=== PATIENT | male | born 1935 | race Asian ===

== ENCOUNTER 2019-08-01 15:10 | Inpatient (IN) | payer MEDICARE ==
[~2019-08-01] VITALS: Ht 167.6 cm; Wt 43.5 kg
--- NOTE | 2019-08-01 15:20 | NUR ---
ED Nurse Note: Pt arrived with RA 861 from home due to generalized weakness. pt states that he has all over body pain and feels weak starting last night worsening this morning. pt iv site established patent and intact; blood specimen sent to lab
[2019-08-01 15:22] VITALS: BP 142/30
[2019-08-01] MEDS ORDERED: LOSARTAN POTASS50 MG ORAL (15:35)
[2019-08-01] MEDS ORDERED: METFORMIN HCL500 M1 ORAL (15:36)
[2019-08-01] MEDS ORDERED: ATORVASTATIN CA20 MG ORAL (15:36)
[2019-08-01] MEDS ORDERED: LEVOFLOXACIN500 MG ORAL (15:37)
--- NOTE | 2019-08-01 15:40 | NUR ---
ED Nurse Note: states that has not had bowel movement x 1 week and has had difficulty eating due to shortness of breath. pt does not appear in distress and does not show SOB or cough, flu like symptoms at this moment.
[2019-08-01] MEDS ORDERED: Omnipaque-300 100ml vial INJ ONE (16:00)
[2019-08-01 16:08] LABS: BASOPHILS % (AUTO) 0.7 % (0.0-2.0); EOSINOPHILS % (AUTO) 0.2 % (0.0-3.0); HEMATOCRIT 39.7 % (42.0-52.0); HEMOGLOBIN 12.9 G/DL (14.2-18.0); LYMPHOCYTES % (AUTO) 21.1 % (20.0-45.0); MEAN CORPUSCULAR VOLUME 102 FL (80-99); MONOCYTES % (AUTO) 5.1 % (1.0-10.0); NEUTROPHILS % (AUTO) 72.9 % (45.0-75.0); PLATELET COUNT 365 K/UL (150-450); RED BLOOD COUNT 3.92 M/UL (4.70-6.10); RED CELL DISTRIBUTION WIDTH 12.3 % (11.6-14.8); WHITE BLOOD COUNT 9.2 K/UL (4.8-10.8)
[2019-08-01 16:17] LABS: ANION GAP 12 mmol/L (5-15); BLOOD UREA NITROGEN 26 mg/dL (7-18); CALCIUM 9.1 MG/DL (8.5-10.1); CARBON DIOXIDE 31 MMOL/L (21-32); CHLORIDE 98 MMOL/L (98-107); CREATININE 0.8 MG/DL (0.55-1.30); POTASSIUM 4.1 MMOL/L (3.5-5.1); SODIUM 141 MMOL/L (136-145)
[2019-08-01 16:21] LABS: ALANINE AMINOTRANSFERASE 13 U/L (12-78); ALBUMIN 3.7 G/DL (3.4-5.0); ALBUMIN/GLOBULIN RATIO 1.2 (1.0-2.7); ALKALINE PHOSPHATASE 49 U/L (46-116); ASPARTATE AMINO TRANSFERASE 21 U/L (15-37); BILIRUBIN,TOTAL 0.7 MG/DL (0.2-1.0)
--- NOTE | 2019-08-01 16:23 | NUR ---
ED Nurse Note: Inserted I&O with coude, no urine was able to be obtained informed ermd. ERMD aware.
--- NOTE | 2019-08-01 16:26 | NUR ---
ED Nurse Note: Pt is taken to CT with ASHLEY Wilson aware of BUN/Cr levels
--- NOTE | 2019-08-01 16:44 | NUR ---
ED Nurse Note: Pt returned from CT
--- NOTE | 2019-08-01 16:46 | NUR ---
ED Nurse Note: ERMD allowed pt to go to see him for few minutes.
[2019-08-01] MEDS ORDERED: Zolpidem 5mg tab ORAL PRN (17:00)
[2019-08-01] MEDS ORDERED: Miralax 17gm pkt ORAL PRN (17:00)
[2019-08-01 17:11] VITALS: BP 155/71
--- NOTE | 2019-08-01 17:23 | Emergency Room Report ---
History of Present Illness General Chief Complaint: Generalized Weakness Source: Patient, Significant Other, EMS Present Illness HPI 83-year-old male presents the ED for evaluation. Brought in by EMS from home. States that he has been increasingly weak and fell yesterday. Denies hitting his head or LOC. States that he has been feeling short of breath. Also states he has not had a bowel movement in 1 week. Denies chest pain. Denies fevers or chills. Denies cough. Denies nausea or vomiting. No other aggravating relieving factors. Denies any other associated symptoms Allergies: Coded Allergies: PENICILLINS (Verified Allergy, Unknown, 08/01/19) COVID-19 Screening Contact w/high risk pt: No Recent Travel to affected area: No Experienced COVID-19 symptoms?: No COVID-19 Testing performed WARP CHANGER: No Patient History Past Medical History: DM, HTN, other - neurolgoical disorder Past Surgical History: none Pertinent Family History: none Social History: Denies: smoking, alcohol use, drug use Immunizations: UTD Reviewed Nursing Documentation: PMH: Agreed; PSxH: Agreed Nursing Documentation-PMH Hx Hypertension: Yes Hx Diabetes: Yes Review of Systems All Other Systems: negative except mentioned in HPI Physical Exam Vital Signs Date Time Temp Pulse Resp B/P (MAP) Pulse Ox O2 Delivery O2 Flow Rate FiO2 08/01/19 15:06 97.3 88 18 142/30 (67) 98 Room Air Sp02 EP Interpretation: reviewed, normal General Appearance: no apparent distress, alert, GCS 15, non-toxic Head: normocephalic, atraumatic Eyes: bilateral eye normal inspection, bilateral eye PERRL ENT: hearing grossly normal, normal pharynx, no angioedema, normal voice Neck: full range of motion, supple/symm/no masses Respiratory: chest non-tender, lungs clear, normal breath sounds, speaking full sentences Cardiovascular #1: regular rate, rhythm, no edema Cardiovascular #2: 2+ carotid (R), 2+ carotid (L), 2+ radial (R), 2+ radial (L) , 2+ dorsalis pedis (R), 2+ dorsalis pedis (L) Gastrointestinal: normal bowel sounds, non tender, soft, non-distended, no guarding, no rebound Rectal: deferred Genitourinary: normal inspection, no CVA tenderness Musculoskeletal: back normal, normal range of motion, gait/station normal, non- tender Neurologic: alert, motor strength/tone normal, oriented x3, sensory intact, responsive, speech normal Psychiatric: judgement/insight normal, memory normal, mood/affect normal, no suicidal/homicidal ideation Reflexes: 3+ bicep (R), 3+ bicep (L), 3+ tricep (R), 3+ tricep (L), 3+ knee (R) , 3+ knee (L) Skin: other - see nursking skin notes Lymphatic: no adenopathy Medical Decision Making Diagnostic Impression: Primary Impression: Generalized weakness Additional Impression: Unsteady gait Labs Test 08/01/19 15:20 White Blood Count 9.2 K/UL (4.8-10.8) Red Blood Count 3.92 M/UL (4.70-6.10) Hemoglobin 12.9 G/DL (14.2-18.0) Hematocrit 39.7 % (42.0-52.0) Mean Corpuscular Volume 102 FL (80-99) Mean Corpuscular Hemoglobin 32.9 PG (27.0-31.0) Mean Corpuscular Hemoglobin Concent 32.4 G/DL (32.0-36.0) Red Cell Distribution Width 12.3 % (11.6-14.8) Platelet Count 365 K/UL (150-450) Mean Platelet Volume 5.1 FL (6.5-10.1) Neutrophils (%) (Auto) 72.9 % (45.0-75.0) Lymphocytes (%) (Auto) 21.1 % (20.0-45.0) Monocytes (%) (Auto) 5.1 % (1.0-10.0) Eosinophils (%) (Auto) 0.2 % (0.0-3.0) Basophils (%) (Auto) 0.7 % (0.0-2.0) Sodium Level 141 MMOL/L (136-145) Potassium Level 4.1 MMOL/L (3.5-5.1) Chloride Level 98 MMOL/L (98-107) Carbon Dioxide Level 31 MMOL/L (21-32) Anion Gap 12 mmol/L (5-15) Blood Urea Nitrogen 26 mg/dL (7-18) Creatinine 0.8 MG/DL (0.55-1.30) Estimat Glomerular Filtration Rate > 60 mL/min (>60) Glucose Level 110 MG/DL (74-106) Calcium Level 9.1 MG/DL (8.5-10.1) Total Bilirubin 0.7 MG/DL (0.2-1.0) Aspartate Amino Transf (AST/SGOT) 21 U/L (15-37) Alanine Aminotransferase (ALT/SGPT) 13 U/L (12-78) Alkaline Phosphatase 49 U/L (46-116) Troponin I 0.022 ng/mL (0.000-0.056) Total Protein 6.7 G/DL (6.4-8.2) Albumin 3.7 G/DL (3.4-5.0) Globulin 3.0 g/dL Albumin/Globulin Ratio 1.2 (1.0-2.7) Lipase 154 U/L (73-393) EKG Diagnostic Results Rate: normal Rhythm: NSR ST Segments: no acute changes ASA given to the pt in ED: No Rhythm Strip Diag. Results EP Interpretation: yes Rhythm: NSR, no PVC's, no ectopy Last Vital Signs Date Time Temp Pulse Resp B/P (MAP) Pulse Ox O2 Delivery O2 Flow Rate FiO2 08/01/19 17:11 97.3 81 16 155/71 100 Room Air Referrals: NON PHYSICIAN (PCP) Papa Porras MD Aug 01, 2019 17:23
--- NOTE | 2019-08-01 18:26 | Diagnostic Imaging Report ---
CLINICAL INDICATION:Chest pain and abdominal pain TECHNIQUE: No oral contrast, per emergency room physician request. IV administration nonionic contrast. Multiphasic spiral acquisitions obtained through the chest, abdomen, and pelvis. Multiplanar reconstructions were generated. Total dose length product 291 mGycm. CTDIvol(s) 2, 53, 2, 2 mGy. Radiation dose was minimized using automated exposure control COMPARISON: none FINDINGS Chest: The lungs are diffusely hyperinflated, demonstrating panlobular emphysema bilaterally, particularly in the upper lobes. Some scarring is seen in the medial right upper lobe. Minimal scarring is seen in the inferior left upper lobe and anterior superior left upper lobe. A small bulla is seen in the left lower lobe. Linear scarring is seen at the left lung base. 3 mm nodule is seen in the anterior inferior right upper lobe (32/7), 2 mm nodule in the inferior lateral right upper lobe (33/7). Calcified nodule is seen in the right lower lobe. No infiltrates, effusions, or masses. No congestion. The heart size is normal. No pericardial effusion. No mediastinal or hilar mass or adenopathy. Unremarkable esophagus. The thyroid is unremarkable. The bones are unremarkable except for proliferative changes of the thoracic spine. Abdomen pelvis: Lack of enteric contrast limits assessment of the GI tract. What may be a normal appendix is demonstrated on the axial images. In any case, no findings to suggest acute appendicitis are evident. No evidence of colonic diverticulosis or diverticulitis. Borderline dilated distal small bowel loops containing fluid and small bowel feces are demonstrated. No more generalized small bowel distention demonstrated.. No free or loculated intraperitoneal gas or fluid. The stomach and duodenum are unremarkable. The liver, gallbladder, bile ducts are unremarkable. There is a 14 mm cyst in the pancreatic body tail junction. The spleen and adrenals are unremarkable. The left kidney is unremarkable. The right kidney demonstrates 2 interpolar region cysts. The bladder is distended despite apparent adequate position of a Nagel catheter. There is a very large diverticulum coming off of the right side of the bladder, which is larger than the main bladder lumen itself, measuring 11 x 8.4 x 11.8 cm. A cluster of calculi is seen dependently within the posterior lumen of the bladder diverticulum. In aggregate, these measure approximately 13 mm in diameter. The prostate is mildly prominent. The bones are unremarkable. There is generalized mild edema of the subcutaneous fat. IMPRESSION: Diffuse pulmonary hyperinflation consistent with COPD. No definite acute pulmonary process Right lung nodules, as described. If there is significant smoking history or risk factors for lung carcinoma, consider 6-[address] follow-up. Of slight granuloma in the right lower lobe Limited assessment of the GI tract, due to lack of enteric contrast administration Mildly dilated distal ileum, with fluid and feces. Nonspecific, could indicate mild enteritis changes Very large bladder diverticulum, as described. Bladder calculi are seen within this. Note that the bladder is distended despite apparent adequate position of a Nagel catheter 14 elevator cystic lesion within the body tail junction of the pancreas. 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 Consider follow-up CT as indicated Generalized mild edema of the subcutaneous fat Prominent prostate Mild edema of the subcutaneous fat Degenerative spondylosis, right renal cysts incidentally noted The CT scanner at [facility] is accredited by the [employer] and the scans are performed using protocols designed to limit radiation exposure to as low as reasonably achievable to attain images of sufficient resolution adequate for diagnostic evaluation.
--- NOTE | 2019-08-01 19:25 | NUR ---
Nurse Note: Endorsed care; pt calm and relaxed, no signs of distress. VSS. SLIV LT hand. Awaiting further orders.
[2019-08-01 19:26] VITALS: BP 146/74
[2019-08-01 21:06] LABS: APPEARANCE,URINE SLIGHTLY CLOUDY; BILIRUBIN, URINE NEGATIVE (NEGATIVE); COLOR,URINE AMBER; GLUCOSE, URINE (UA) NEGATIVE (NEGATIVE); KETONES,URINE 3+ (NEGATIVE); LEUKOCYTE ESTERASE ,URINE 2+ (NEGATIVE); NITRITE,URINE NEGATIVE (NEGATIVE); PH,URINE 5 (4.5-8.0); PROTEIN,URINE 2+ (NEGATIVE); UROBILINOGEN,URINE NORMAL MG/DL (0.0-1.0)
[2019-08-01 21:09] VITALS: BP 122/77
--- NOTE | 2019-08-01 21:10 | NUR ---
Nurse Note: Pt remains calm, a&ox3, VSS, afebrile. SLIV LT hand; patent. Denies pain. No skin breakdown. All safety measures met; will continue to monitor.
[2019-08-01 21:15] VITALS: BP 122/77
--- NOTE | 2019-08-01 21:24 | NUR ---
NURSE NOTES: Patient came from ER via gurney. A&OX4. IV site patent and intact. Skin intact. Belongings were checked. Bed in lowest position. Call light within reach. Will continue to monitor.
[2019-08-01 21:30] VITALS: BP 140/72
[2019-08-01] MEDS: Heparin 5000 units/ml inj SUBQ SCH (22:30)
[2019-08-02] VITALS: BP 125/69
[2019-08-02 04:00] VITALS: BP 122/66
[2019-08-02] MEDS: NovoLOG Insulin Flexpen SUBQ SCH ×3 (06:30→16:30)
[2019-08-02 06:36] LABS: BASOPHILS % (AUTO) 0.7 % (0.0-2.0); EOSINOPHILS % (AUTO) 0.2 % (0.0-3.0); HEMATOCRIT 33.4 % (42.0-52.0); HEMOGLOBIN 12.1 G/DL (14.2-18.0); LYMPHOCYTES % (AUTO) 14.1 % (20.0-45.0); MEAN CORPUSCULAR VOLUME 93 FL (80-99); MONOCYTES % (AUTO) 5.1 % (1.0-10.0); NEUTROPHILS % (AUTO) 79.9 % (45.0-75.0); PLATELET COUNT 317 K/UL (150-450); RED BLOOD COUNT 3.58 M/UL (4.70-6.10); RED CELL DISTRIBUTION WIDTH 11.1 % (11.6-14.8); WHITE BLOOD COUNT 7.9 K/UL (4.8-10.8)
--- NOTE | 2019-08-02 07:11 | NUR ---
NURSE NOTES: Patient c/o constipation and asking enema. Obtained Fleet enema once order from Dr. Raymundo.
--- NOTE | 2019-08-02 07:12 | NUR ---
HAND-OFF: Report given to Kennedy WHALEY.
[2019-08-02 07:29] LABS: ALANINE AMINOTRANSFERASE 16 U/L (12-78); ALBUMIN 3.3 G/DL (3.4-5.0); ALBUMIN/GLOBULIN RATIO 1.2 (1.0-2.7); ALKALINE PHOSPHATASE 44 U/L (46-116); ANION GAP 10 mmol/L (5-15); ASPARTATE AMINO TRANSFERASE 17 U/L (15-37); BILIRUBIN,TOTAL 0.6 MG/DL (0.2-1.0); BLOOD UREA NITROGEN 18 mg/dL (7-18); CALCIUM 8.9 MG/DL (8.5-10.1); CARBON DIOXIDE 30 MMOL/L (21-32); CHLORIDE 101 MMOL/L (98-107); CHOLESTEROL 143 MG/DL (< 200); CREATININE 0.8 MG/DL (0.55-1.30); HDL CHOLESTEROL 58 MG/DL (40-60); POTASSIUM 3.4 MMOL/L (3.5-5.1); SODIUM 141 MMOL/L (136-145); TRIGLYCERIDES 55 MG/DL (30-150)
[2019-08-02] MEDS ORDERED: Fleet's Enema 133ml RECTAL SCH (07:30)
[2019-08-02 08:00] VITALS: BP 128/71
--- NOTE | 2019-08-02 08:10 | NUR ---
NURSE NOTES: received report from JUDD Szymanski. patient in bed. a&ox4, verbally responsive. no respiratory distress noted. pain on general body. IV on LH20g. saline lock. intact. no BM since 07/26/19. impacted. received order of enema. weak. bed bound. bed in the lowest position and locked. call light within reach. will continue to provide plan of care.
[2019-08-02] MEDS: Heparin 5000 units/ml inj SUBQ SCH (08:15)
--- NOTE | 2019-08-02 11:22 | NUR ---
NURSE NOTES: patient was transferred to room 301-1 with stable condition. given report to JUDD Callejas.
--- NOTE | 2019-08-02 11:25 | NUR ---
NURSE NOTES: Report received from JUDD Nagy. Patient transferred safely from 4E to 3E via patient bed. Patient belongings verified with second RN. Patient is in stable condition, vital signs are stable, no signs of distress noted. Left hand IV is patent and asymptomatic, saline locked. Patient's skin is intact. Bed is low and locked, side rails up x2, call light within reach.
[2019-08-02 12:00] VITALS: BP 127/75
--- NOTE | 2019-08-02 12:41 | History and Physical ---
History of Present Illness General Date patient seen: Aug 02, 2019 Reason for Hospitalization: Generalized Weakness Present Illness HPI 83 year old male with hx of DM, HTN, Parkinson disease brought in by paramedics with CC of weakness for the last two days. Pt states that he has Parkinson but Dopamin is not helping him. He has been constipated for over a week. He looks his age but is very cachectic. Looks comfortable and in no acute distress. Allergies: Coded Allergies: PENICILLINS (Verified Allergy, Unknown, 08/01/19) COVID-19 Screening Contact w/high risk pt: No Recent Travel to affected area: No Experienced COVID-19 symptoms?: No Medication History Scheduled Atorvastatin Calcium* (Atorvastatin Calcium*), 10 MG ORAL BEDTIME, (Reported) Levofloxacin (Levofloxacin*), 500 MG ORAL DAILY, (Reported) Losartan Potassium* (Losartan Potassium*), 100 MG ORAL DAILY, (Reported) Metformin Hcl* (Metformin Hcl*), 500 MG ORAL TWICE A DAY, (Reported) Patient History Healthcare decision maker Resuscitation status Advanced Directive on File Past Medical/Surgical History Past Medical/Surgical History: (1) Parkinson disease (2) Generalized weakness (3) History of diabetes mellitus (4) History of hypertension Review of Systems All Other Systems: negative except mentioned in HPI Physical Exam General Appearance: cachetic, thin Lines, tubes and drains: peripheral HEENT: normocephalic, atraumatic Neck: non-tender, normal alignment Respiratory/Chest: chest wall non-tender, lungs clear Breasts: no masses Cardiovascular/Chest: normal peripheral pulses, normal rate Abdomen: normal bowel sounds, non tender Genitourinary/Rectal: normal genital exam, normal rectal exam Extremities: normal range of motion Neurologic: telephone quotation clerk II-XII grossly normal Last 24 Hour Vital Signs Date Time Temp Pulse Resp B/P (MAP) Pulse Ox O2 Delivery O2 Flow Rate FiO2 08/02/19 09:00 Room Air 08/02/19 08:00 98.1 97 21 128/71 (90) 93 08/02/19 04:00 97.7 81 22 122/66 (84) 93 08/02/19 00:00 98.4 94 20 125/69 (87) 94 08/01/19 23:45 Room Air 08/01/19 22:00 Room Air 08/01/19 21:30 98.1 89 17 140/72 (94) 92 08/01/19 21:15 97.7 90 16 122/77 99 Room Air 08/01/19 21:15 97.7 90 16 122/77 99 Room Air 08/01/19 21:09 97.7 90 16 122/77 99 Room Air 08/01/19 19:26 97.7 78 16 146/74 100 Room Air 08/01/19 17:11 97.3 81 16 155/71 100 Room Air 08/01/19 15:22 97.3 88 18 142/30 98 Room Air 08/01/19 15:22 88 18 Room Air 08/01/19 15:06 97.3 88 18 142/30 (67) 98 Room Air Intake and Output 08/01/19 08/02/19 18:59 06:59 Intake Total 500 ml 420 ml Output Total 0 ml 500 ml Balance 500 ml -80 ml Intake Oral 420 ml IV Total 500 ml Output Urine Total 0 ml 500 ml Laboratory Tests Test 08/01/19 15:20 08/01/19 20:40 08/02/19 04:59 White Blood Count 9.2 K/UL (4.8-10.8) 7.9 K/UL (4.8-10.8) Red Blood Count 3.92 M/UL (4.70-6.10) L 3.58 M/UL (4.70-6.10) L Hemoglobin 12.9 G/DL (14.2-18.0) L 12.1 G/DL (14.2-18.0) L Hematocrit 39.7 % (42.0-52.0) L 33.4 % (42.0-52.0) L Mean Corpuscular Volume 102 FL (80-99) H 93 FL (80-99) # Mean Corpuscular Hemoglobin 32.9 PG (27.0-31.0) H 33.7 PG (27.0-31.0) H Mean Corpuscular Hemoglobin Concent 32.4 G/DL (32.0-36.0) 36.1 G/DL (32.0-36.0) H Red Cell Distribution Width 12.3 % (11.6-14.8) 11.1 % (11.6-14.8) L Platelet Count 365 K/UL (150-450) 317 K/UL (150-450) Mean Platelet Volume 5.1 FL (6.5-10.1) L 4.1 FL (6.5-10.1) L Neutrophils (%) (Auto) 72.9 % (45.0-75.0) 79.9 % (45.0-75.0) H Lymphocytes (%) (Auto) 21.1 % (20.0-45.0) 14.1 % (20.0-45.0) L Monocytes (%) (Auto) 5.1 % (1.0-10.0) 5.1 % (1.0-10.0) Eosinophils (%) (Auto) 0.2 % (0.0-3.0) 0.2 % (0.0-3.0) Basophils (%) (Auto) 0.7 % (0.0-2.0) 0.7 % (0.0-2.0) Sodium Level 141 MMOL/L (136-145) 141 MMOL/L (136-145) Potassium Level 4.1 MMOL/L (3.5-5.1) 3.4 MMOL/L (3.5-5.1) L Chloride Level 98 MMOL/L (98-107) 101 MMOL/L (98-107) Carbon Dioxide Level 31 MMOL/L (21-32) 30 MMOL/L (21-32) Anion Gap 12 mmol/L (5-15) 10 mmol/L (5-15) Blood Urea Nitrogen 26 mg/dL (7-18) H 18 mg/dL (7-18) Creatinine 0.8 MG/DL (0.55-1.30) 0.8 MG/DL (0.55-1.30) Estimat Glomerular Filtration Rate > 60 mL/min (>60) > 60 mL/min (>60) Glucose Level 110 MG/DL (74-106) H 101 MG/DL (74-106) Calcium Level 9.1 MG/DL (8.5-10.1) 8.9 MG/DL (8.5-10.1) Total Bilirubin 0.7 MG/DL (0.2-1.0) 0.6 MG/DL (0.2-1.0) Aspartate Amino Transf (AST/SGOT) 21 U/L (15-37) 17 U/L (15-37) Alanine Aminotransferase (ALT/SGPT) 13 U/L (12-78) 16 U/L (12-78) Alkaline Phosphatase 49 U/L (46-116) 44 U/L (46-116) L Troponin I 0.022 ng/mL (0.000-0.056) Total Protein 6.7 G/DL (6.4-8.2) 6.0 G/DL (6.4-8.2) L Albumin 3.7 G/DL (3.4-5.0) 3.3 G/DL (3.4-5.0) L Globulin 3.0 g/dL 2.7 g/dL Albumin/Globulin Ratio 1.2 (1.0-2.7) 1.2 (1.0-2.7) Lipase 154 U/L (73-393) Urine Color Evie Urine Appearance Slightly cloudy Urine pH 5 (4.5-8.0) Urine Specific [place] 1.020 (1.005-1.035) Urine Protein 2+ (NEGATIVE) H Urine Glucose (UA) Negative (NEGATIVE) Urine Ketones 3+ (NEGATIVE) H Urine Blood Negative (NEGATIVE) Urine Nitrite Negative (NEGATIVE) Urine Bilirubin Negative (NEGATIVE) Urine Ictotest Negative (NEGATIVE) Urine Urobilinogen Normal MG/DL (0.0-1.0) Urine Leukocyte Esterase 2+ (NEGATIVE) H Urine RBC 0 /HPF (0 - 0) Urine WBC 15-20 /HPF (0 - 0) H Urine Squamous Epithelial Cells Occasional /LPF Urine Bacteria Moderate /HPF (NONE) H Urine Yeast Many /HPF (NONE) H Triglycerides Level 55 MG/DL (30-150) Cholesterol Level 143 MG/DL (< 200) LDL Cholesterol 75 mg/dL (<100) HDL Cholesterol 58 MG/DL (40-60) Cholesterol/HDL Ratio 2.5 (3.3-4.4) L Microbiology Date/Time Source Procedure Growth Status 08/01/19 20:40 Urine,Clean Catch Urine Culture - Preliminary NO GROWTH Resulted Height (Feet): 5 Height (Inches): 6.00 Weight (Pounds): 96 Medications Current Medications Medications (Trade) Dose Ordered Sig/Keisha Route PRN Reason Start Time Stop Time Status Last Admin Dose Admin Acetaminophen (Tylenol) 650 mg Q4H PRN ORAL fever 08/01/19 17:00 08/31/19 16:59 Cyproheptadine HCl (Periactin) 4 mg DAILY ORAL 08/02/19 12:30 10/31/19 12:29 UNV Dextrose (Dextrose 50%) 25 ml Q30M PRN IV Hypoglycemia 08/01/19 17:00 10/30/19 16:59 Dextrose (Dextrose 50%) 50 ml Q30M PRN IV Hypoglycemia 08/01/19 17:00 10/30/19 16:59 Docusate Sodium (Colace) 100 mg THREE TIMES A DAY ORAL 08/02/19 13:00 09/01/19 12:59 UNV Heparin Sodium (Porcine) (Heparin 5000 units/ml) 5,000 units EVERY 12 HOURS SUBQ 08/01/19 21:00 09/15/19 20:59 08/02/19 08:15 Insulin Aspart (NovoLOG) BEFORE MEALS AND HS SUBQ 08/02/19 06:30 10/31/19 06:29 Lactulose (Cephulac) 30 gm THREE TIMES A DAY ORAL 08/02/19 13:00 09/01/19 12:59 UNV Mineral Oil (Fleet's Mineral Oil Enema) 133 ml EVERY OTHER DAY RECTAL 08/04/19 09:00 09/03/19 08:59 UNV Ondansetron HCl (Zofran) 4 mg Q6H PRN IVP Nausea & Vomiting 08/01/19 17:00 08/31/19 16:59 Polyethylene Glycol (Miralax) 17 gm BEDTIME ORAL 08/02/19 21:00 09/01/19 20:59 UNV Polyethylene Glycol (Miralax) 17 gm HSPRN PRN ORAL Constipation 08/01/19 17:00 08/31/19 16:59 08/01/19 22:58 Sennosides (Senokot) 8.6 mg DAILY ORAL 08/03/19 09:00 09/02/19 08:59 UNV Zolpidem Tartrate (Ambien) 5 mg HSPRN PRN ORAL Insomnia 08/01/19 17:00 08/08/19 16:59 Assessment/Plan Problem List: (1) Generalized weakness ICD Codes: R53.1 - Weakness SNOMED: 52995258 (2) Intractable constipation ICD Codes: K59.00 - Constipation, unspecified SNOMED: 147956347 (3) Severe protein-calorie malnutrition ICD Codes: E43 - Unspecified severe protein-calorie malnutrition SNOMED: 868481165, 965640934, 661211045 (4) History of diabetes mellitus ICD Codes: Z86.39 - Personal history of other endocrine, nutritional and metabolic disease SNOMED: 995807566 (5) Parkinson disease ICD Codes: G20 - Parkinson's disease SNOMED: 63555602 (6) History of hypertension ICD Codes: Z86.79 - Personal history of other diseases of the circulatory system SNOMED: 400397626 Assessment/Plan: calorie count sliding scale neuro evaluation swallow evaluation trial of Periactin symptomatic treatment for constipation Price Raymundo MD Aug 02, 2019 12:41
[2019-08-02] MEDS ORDERED: Lactulose 20gm/30ml UDC ORAL SCH (13:00)
[2019-08-02] MEDS ORDERED: Cyproheptadine HCl 4mg tab ORAL SCH (13:00)
[2019-08-02] MEDS ORDERED: Docusate 100mg cap ORAL SCH (13:00)
[2019-08-02 13:56] LABS: LACTATE DEHYDROGENASE 159 U/L (81-234)
--- NOTE | 2019-08-02 14:00 | NUR ---
NURSE NOTES: Patient is expressing strong desire to go home, RN explained the risks of going home and informed charge nurse. Dr. Raymundo was contacted, currently waiting for call back.
--- NOTE | 2019-08-02 14:09 | NUR ---
*-* INSURANCE *-* ALL CLINICALS HAVE BEEN FAXED TO: SINHALA LUXEMBOURGER P:[phone] F: [phone] (FAX ALL CLINICALS) Addendum: 08/03/19 at 1146 by MICKEY DELGADO Auth/tracking # [id number] [facility] Fax Clinicals: [phone]
--- NOTE | 2019-08-02 14:30 | NUR ---
PRODUCTION CELL LEADER NOTES PLACED A CALL TO [facility]U FROM PT'S INSURANCE. CLINICALS REVIEWED. PER THU AUTHORIZATION FOR OBS WAS GIVEN. INFORMED THU PT IS A FULL ADMISSION. [facility]U WILL NOT TRANSFER THE PT AT THIS TIME. THU [phone](P)
[2019-08-02 14:36] LABS: % IRON SATURATION 30 % (15-50); IRON 53 ug/dL (50-175); TOTAL IRON BINDING CAPACITY 175 ug/dL (250-450)
--- NOTE | 2019-08-02 14:43 | NUR ---
LEGAL ASSISTANT NOTE CALL MADE TO JOSE CLEMENTS @ [phone]. S/W BRISEYDA IN RE TO [facility]. PER BRISEYDA, PATIENT WILL NOT BE TRANSFERRED TO [facility] AT THIS TIME. PATIENT TO CONTINUE INPATIENT AT [facility] UNTIL DC.
[2019-08-02 16:00] VITALS: BP 127/71
--- NOTE | 2019-08-02 16:00 | NUR ---
NURSE NOTES: Dr. Raymundo cleared patient for discharge home and to continue home medications.
[2019-08-02] MEDS ORDERED: Varibar Honey 250ml MC PRN (16:15)
[2019-08-02] MEDS ORDERED: Varibar Nectar 240ml MC PRN (16:15)
[2019-08-02] MEDS ORDERED: Varibar Pudding 230ml MC PRN (16:15)
[2019-08-02] MEDS ORDERED: Varibar Thin Liquid powder 148gm MC PRN (16:15)
--- NOTE | 2019-08-02 16:44 | NUR ---
CASE MANAGEMENT:INITIAL REVIEW 83 YR OLD MALE BIBA FROM HOME CC;GENERALIZED WEAKNESS SI;WEAKNESS. FALLS. 97.3 88 18 142/30 98% ON RA K+ 3.4 BUN 26 ALK PHOS 44 ALB 3.3 UA+ PROTEIN, KETONES, UROBILI, WBC, BACTERIA, YEAST IS;IVF NS BOLUS ADMITTED TO MED SURG MED SURG STATUS DCP;PATIENT IS FROM HOME
--- NOTE | 2019-08-02 17:00 | NUR ---
ASSOCIATE GENETICS PROFESSOR BEDSIDE SWALLOW EVALUATION (Please see complete report in care activity section) PATIENT REFERRED FOR BEDSIDE SWALLOW EVALUATION BY DR. MARROQUIN: DYSPHAGIA RISK FACTORS FOR THIS 83 Y.O. MALE: ACUTE ISSUES: SOB, constipation, Generalized Weakness, sever protein-calorie malnutrition. H/O: DM, HTN, High Cholesterol, Parkinson disease, PER CXR on 08/01/19 Right lung nodules and suspect h/o COPD. RELEVANT MEDS: Zofran (Nausea); Ambien (insomnia). VITALS ON ROOM AIR: HR: 97; RR: 21; SP02 93% PER ED RN Note: states that has not had bowel movements x1 week and has had difficulty eating due to shortness of breath. Pt does not appear in distress and does not show SOB or cough, flu like symptoms at this moment. POLST: Patient is a full code. PER RN: Patient completed lunch and breakfast without difficulties, completed medication management without difficulties. Current diet is CCHO Medium, Regular texture with thin liquids. Patient seen at bedside, alert and VSS for the duration of the session. Patient is able to verbally make wants and needs known in [place]. Vocal volume/intensity appears reduced; Oral motor ROM and coordination mildly reduced, Patient is able to self-feed, natural dentition intact, oral hygiene is WNL. Patient noted to have a baseline wet, weak, and productive cough resulting in mild amt of secretions Patient was able to spit into a napkin. Patient endorses mild difficulty masticating regular solids diet texture, states no difficulty with thin liquids. ASSOCIATE GENETICS PROFESSOR attempted to give Patient PO trials, however, Patient states 'it doesn't matter because Im leaving tonight, the temperature here is too low," ASSOCIATE GENETICS PROFESSOR offered Patient a blanket and Patient refused. Despite ASSOCIATE GENETICS PROFESSOR max encouragement, Patient continued to refuse PO trials with ASSOCIATE GENETICS PROFESSOR. INITIAL IMPRESSIONS: Suspect s/s of at least Mild Oral phase dysphagia and probable mild pharyngeal phase dysphagia compounded by SOB, generalized weakness, and reduced oral motor coordination and strength, probable prolonged and reduced rotary mastication given Patients reports of difficulty masticating and spouse reports of Patient's difficulty masticating 2/2 SOB prior to admission. Additional aspiration risk given reduced Patients breathing-swallowing coordination. Laryngeal elevation with dry swallow is fair. Despite ASSOCIATE GENETICS PROFESSOR max encouragement, Patient continued to refuse PO trials with ASSOCIATE GENETICS PROFESSOR. PATIENT IS A HIGH RISK FOR ASPIRATION AND POOR PO GIVEN H/O PARKINSON, WEAKNESS, SUSPECT COPD AND SOB RECOMMENDATIONS: 1. Downgrade diet texture to Mechanical Soft-Chopped with Thin Liquids (CCHO Medium carried over from previous order.) 2. RD consult for diet type/supplements. 3. ASSOCIATE GENETICS PROFESSOR plans to f/u for PO trials to assure safety with current diet texture, for dysphagia tx and management, and Patient and caregiver education and training. ASSOCIATE GENETICS PROFESSOR made RN aware of results, recommendations, and ASSOCIATE GENETICS PROFESSOR POC. ASSOCIATE GENETICS PROFESSOR will f/u tomorrow. Thank you for this referral! ASSOCIATE GENETICS PROFESSOR [phone]
--- NOTE | 2019-08-02 17:30 | NUR ---
NURSE NOTES: Patient safely discharged from to home via taxi. Patient was accompanied by his and understood and verbally agreed with fall safety precautions. Belongings were verified and confirmed with patient, patient information packet was provided, IV was removed, and ID wristband removed.
[2019-08-02] MEDS ORDERED: Tamsulosin 0.4mg cap ORAL SCH (21:00)
[2019-08-02] MEDS ORDERED: Miralax 17gm pkt ORAL SCH (21:00)
[2019-08-03] MEDS ORDERED: Sennosides 8.6mg tab ORAL SCH (09:00)
--- NOTE | 2019-08-03 15:58 | NUR ---
*-* NO DISCHARGE SUMMARY IN THE SYSTEM UNABLE TO SEND TO [facility] *-*
[2019-08-04] MEDS ORDERED: Fleet's Mineral Oil Enema RECTAL SCH (09:00)
--- NOTE | 2019-08-06 12:56 | Discharge Summary ---
Discharge Summary Discharge Summary _ DATE OF ADMISSION: 08/01/2019 DATE OF DISCHARGE: 08/02/2019 DISCHARGED BY: Dr. Raymundo REASON FOR ADMISSION: 83 years old male with past medical history diabetes mellitus, hypertension, Parkinson disease, was brought by paramedics with chief complaint of weakness for the last 2 days. Patient was constipated for over a week. Patient was on levodopa without significant help. Patient appeared to be very cachectic. It was reported a fall prior to presentation to ED. Patient denied hitting his head or loss of consciousness. No chest pain. No fever or chills. No cough. Upon evaluation vital signs were stable. Laboratory work-up revealed no leukocytosis ,hemoglobin 12.9, hematocrit 39.7, platelet count 365. Stable electrolytes. BUN 26, creatinine 0.8. Stable LFT. Troponin 0.022. EKG revealed sinus rhythm, no acute ischemic changes . Urinalysis revealed pyuria, moderate bacteria and many yeast. CT scan of the chest ,abdomen,and pelvis revealed diffuse pulmonary hyperinflation consistent with COPD. No definite acute pulmonary process. Right lung nodules. No evidence of colonic diverticulosis or diverticulitis. Borderline dilated distal small bowel loops containing fluid and small bowel feces. No free or loculated intraperitoneal gas or fluid. Liver, gallbladder ,bile ducts were unremarkable. Spleen and adrenals unremarkable as well. Prominent prostate. Very large diverticulum coming off the right side of the bladder. Patient subsequently admitted for further management. HOSPITAL COURSE: Patient admitted to medical surgical floor. Patient started on the IV fluids. Calorie count was implemented. Trial of Periactin started. Blood sugar was managed with a sliding scale of insulin. Home medication continued. DVT prophylaxis provided. Bedside swallow evaluation was done. Diet texture provided as per speech therapist recommendation with strict aspiration precaution. Protein supplements implemented in plan of care. Fall precautions maintained. Patient and his were educated on fall and safety precaution. Potassium was replaced. CEA within normal limits. Anemia work-up consistent with anemia of chronic disease. Stable B12 and folate level. Lipid panel stable. BUN from 26 down to 18 . Blood pressure closely monitored and remained stable without antihypertensive medications. Urine culture revealed Nasrin , patient received a dose of Diflucan. Bowel regimen instituted. Patient had a good bowel movement. Patient clinically stabilized and was ready for discharge home. Due to rapid and unexpected improvement in patient condition , patient was discharged in one day. FINAL DIAGNOSES: Severe protein calorie malnutrition Generalized weakness Intractable constipation-resolved Diabetes mellitus Parkinson disease History of hypertension DISCHARGE MEDICATIONS: See Medication Reconciliation list. DISCHARGE INSTRUCTIONS: Patient was discharged home. Follow-up with a primary care provider in 1 week. I have been assigned to dictate discharge summary for this account. I was not involved in the patient's management. Arianna Tejeda NP Aug 06, 2019 12:55
--- NOTE | 2019-08-06 13:49 | NUR ---
*-* INSURANCE *-* ALL CLINICALS HAVE BEEN FAXED TO: JO[facility] Cao/tracking # [id number] Fax Clinicals: [phone] Addendum: 08/06/19 at 1352 by MICKEY DELGADO CM *-* DISCHARGE SUMMARY HAS BEEN FAXED *-*
== END 2019-08-02 18:04 | disposition home or self-care (01) | DRG 947 ==
LOC: EDBD 15:10 → EMR 15:45 → 4E 16:27 → EDBEDREQ 21:02 → 4E 08-02 03:45 → 3E 08-02 11:07
DX: R53.1 Weakness (principal); E43 Unspecified severe protein-calorie malnutrition; Z68.1 Body mass index [BMI] 19.9 or less, adult; Z88.0 Allergy status to penicillin; E11.9 Type 2 diabetes mellitus without complications; G20 Parkinson's disease; K59.00 Constipation, unspecified; I10 Essential (primary) hypertension; Z91.81 History of falling; N32.3 Diverticulum of bladder; D63.8 Anemia in other chronic diseases classified elsewhere
CPT/HCPCS: 36415; 71260; 74177; 80053; 80061; 81003; 82378; 82607; 82746; 82962; 83540; 83550; 83615; 83690; 84484; 85007; 85025; 85044; 85060; 85610; 85651; 85730; 87086; 93005; 99285; J1815